=== PATIENT | male | born 1980 | race Caucasian/White ===

== ENCOUNTER 2020-07-21 16:04 | Emergency (ER) | payer OTHER, SELFPAY ==
--- NOTE | ~2020-07-21 | XR_ITS ---
EXAMINATION: XR chest 2V 07/21/2020 16:19 INDICATION: Rib pain after fall PROCEDURE: 2 view chest COMPARISON: Comparison to multiple prior studies sequentially, with oldest reviewed study dated 12/19. FINDINGS: The lungs are clear. The cardiomediastinal silhouette is within normal limits. There are no pleural effusions. There is no pneumothorax suspected. IMPRESSION: 1: NO ACUTE CARDIOPULMONARY DISEASE. Reviewed, dictated and finalized at location B. 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
[2020-07-21 16:06] VITALS: BP 133/89; PULSE 83; RESP 20; TEMP 36.4; O2SAT 100
--- NOTE | 2020-07-21 20:26 | ED.GENADULT ---
HPI - General Adult General Chief complaint: Fall Stated complaint: fall- rib pain Time Seen by Provider: 07/21/20 16:10 Source: patient Mode of arrival: ambulatory Limitations: no limitations History of Present Illness HPI narrative: Patient presents with chief complaint of right posterior rib pain after falling down the steps at work on July 11. Patient states that today while he was at work he coughed and he felt a popping sensation to his ribs with worsening pain. Patient denies shortness of breath, nausea, vomiting, diarrhea, fever, chills, shortness of breath. Related Data Allergies Allergy/AdvReac Type Severity Reaction Status Date / Time No Known Allergies Allergy Verified 07/21/20 16:08 Review of Systems Review of Systems: Narrative: CONSTITUTIONAL: Denies fever, chills, or sweats. EYES: Denies visual changes, redness, or discharge. ENT: Denies rhinorrhea, congestion, sore throat, or otalgia. CARDIOVASCULAR: Denies chest pain, palpitations, or edema. RESPIRATORY: Denies cough or dyspnea. GASTROINTESTINAL: Denies abdominal pain, nausea, vomiting, or diarrhea. GENITOURINARY: Denies dysuria or hematuria. SKIN: Denies rash or itching. MUSCULOSKELETAL: Reports rib pain denies back pain, joint pain, or myalgia. NEUROLOGIC: Denies headache, numbness, dizziness, or weakness. PSYCHIATRIC: Denies anxiety or depression. PMFSH Social History Social History Gender identity (if verbalized by the patient): Male Exam Narrative: Exam Narrative: GENERAL: Well-appearing, well-nourished, and in no acute distress. HEAD: Normocephalic, atraumatic. EYES: PERRLA and EOMI. NECK: Supple. No adenopathy or masses. CHEST: Extremely faint bruise to the posterior aspect of right rib. clear to auscultation. No respiratory distress. No wheezes rales or rhonchi. No flail chesting. No tachypnea HEART: Regular rate and rhythm. No murmur heard. Normal peripheral pulses. EXTREMITIES: Normal range of motion. No edema. SKIN: Warm, dry, no rash. NEURO: No focal deficits. Alert and oriented x3. PSYCH: Normal mood and affect. Course Vital Signs Vital signs: Vital Signs Temperature 97.5 F L 07/21/20 16:06 Pulse Rate 83 07/21/20 16:06 Respiratory Rate 20 07/21/20 16:06 Blood Pressure 133/89 07/21/20 16:06 Pulse Oximetry 100 07/21/20 16:06 Temperature 97.5 F L 07/21/20 16:06 Pulse Rate 83 07/21/20 16:06 Respiratory Rate 20 07/21/20 16:06 Blood Pressure 133/89 07/21/20 16:06 Pulse Oximetry 100 07/21/20 16:06 Medical Decision Making MDM Narrative Medical decision making narrative: No fracture patient is asking about work restrictions to be off work due to cough worsening pain. Patient has been functioning this job since the fall July 11. No signs of need for patient to be off work prolonged or have extensive restrictions at this time. Differential Diagnosis Differential Diagnosis: PE, pneumonia, rib fracture, rib contusion Vital Signs Vital Signs: Vital Signs Temperature 97.5 F L 07/21/20 16:06 Pulse Rate 83 07/21/20 16:06 Respiratory Rate 20 07/21/20 16:06 Blood Pressure 133/89 07/21/20 16:06 Pulse Oximetry 100 07/21/20 16:06 Temperature 97.5 F L 07/21/20 16:06 Pulse Rate 83 07/21/20 16:06 Respiratory Rate 20 07/21/20 16:06 Blood Pressure 133/89 07/21/20 16:06 Pulse Oximetry 100 07/21/20 16:06 Imaging Data Radiologist's impression: ITS Impressions Chest X-Ray 07/21/20 16:22 IMPRESSION: 1: NO ACUTE CARDIOPULMONARY DISEASE. Discharge Plan Discharge Clinical Impression: Rib pain on right side Patient Disposition: Home, Self-Care Condition: Stable Instructions: Antibiotic Form, Rib Contusion (ED) Additional Instructions: Take naproxen and cyclobenzaprine as directed. Do not take cyclobenzaprine if you be driving operate heavy machinery as it can cause drowsiness. Do not take any other NSAIDs with naproxen. You
== END 2020-07-21 18:02 | disposition home or self-care (01) ==
PROVIDERS: Emergency Provider Emergency Medicine
DX: R07.81 Pleurodynia (principal); W10.9XXA Fall (on) (from) unspecified stairs and steps, initial encounter
CPT/HCPCS: 71046; 99283

== ENCOUNTER 2022-06-27 10:21 | Emergency (ER) | payer OTHER, SELFPAY ==
--- NOTE | ~2022-06-27 | XR_ITS ---
XR chest 2V DATE: 06/27/2022 10:45 INDICATION: Chest tightness, sweats, fatigue TECHNIQUE: PA and lateral views COMPARISON: July 21, 2020 2 view chest FINDINGS: Normal heart size. No hilar or mediastinal enlargement. Minimal infiltrate or atelectasis i s suggested in the lower lung zones. The lungs otherwise appear clear. No pleural effusion or pulmona ry vascular congestion or pneumothorax is detected. IMPRESSION: Minimal infiltrate or atelectasis in the lower lung since Reviewed, dictated and finalized at location B. 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
--- NOTE | 2022-06-27 10:23 | ECG_ITS ---
Measurements Intervals [place] Rate: 75 P: 22 SD: 164 QRS: -12 QRSD: 106 T: 24 QT: 350 QTc: 392 Interpretive Statements SINUS RHYTHM DELAYED PRECORDIAL R/S TRANSITION BORDERLINE ECG NO PREVIOUS ECG AVAILABLE FOR COMPARISON Electronically Signed On 06-27-2022 10:31:01 PANELBOARD OPERATOR by Woody Lobato D.O.
[2022-06-27 10:27] VITALS: BP 173/116; PULSE 86; RESP 18; TEMP 36.8; O2SAT 95
[2022-06-27 10:47] LABS: Basophils Percent Auto 0.4 % (0.2-1.2); Eosinophils Absolute Auto 0.1 K/mm3 (0-0.3); Eosinophils Percent Auto 1.7 % (0-4.4); Hemoglobin 14.9 g/dL (14.0-18.0); Immature Granulocyte Absolute 0.02 K/mm3 (0.00-0.031); Immature Granulocyte Percent A 0.3 % (0-0.5); Lymphocytes Absolute Auto 1.61 K/mm3 (0.9-3.2); Lymphocytes Percent Auto 23.1 % (18.3-44.2); Mean Corpuscular HGB Conc 35.5 g/dl (32-36); Mean Corpuscular Hemoglobin 30.5 pg (26-34); Mean Corpuscular Volume 86.1 fl (80-100); Mean Platelet Volume 9.6 fl (7.4-10.4); Monocytes Absolute Auto 0.4 K/mm3 (0.1-0.6); Neutrophils Absolute Auto 4.8 K/mm3 (1.3-6.7); Neutrophils Percent Auto 68.5 % (45.5-73.1); Platelet Count Result 347 k/mm3 (150-375); Red Blood Count 4.88 M/mm3 (4.6-6.20); Red Cell Distribution Width 11.7 % (11.5-14.5)
[2022-06-27 10:55] VITALS: BP 156/102; PULSE 75; RESP 12; O2SAT 98
[2022-06-27 10:59] LABS: Partial Thromboplastin Time 27.8 SECONDS (22.3-36.8); Prothrombin Time 12.7 Seconds (11.1-14.7)
[2022-06-27 11:05] VITALS: BP 133/98; PULSE 69; RESP 12; O2SAT 94
[2022-06-27] MEDS: ASPIRIN 81 MG CHEWABLE TABLET 324 MG PO (11:06)
[2022-06-27 11:17] LABS: Alanine Aminotransferase 28 U/L (6-50); Albumin Level 4.7 g/dL (3.5-5.1); Alkaline Phosphatase 40 U/L (38-126); Anion Gap 4 mmol/L (8-16); Aspartate Amino Transferase 31 U/L (17-59); Bilirubin,Total 0.7 mg/dL (0.2-1.3); Blood Urea Nitrogen 19 mg/dL (9-20); Carbon Dioxide 27 mmol/L (22-30); Chloride 104 mmol/L (98-107); Estimated CRCL calculation 102 ml/min; Estimated Glomerular Filt Rate > 60; Glucose 112 mg/dL (65-110); Lipase 85 U/L (23-300); Potassium 4.1 mmol/L (3.4-5.0); Sodium 135 mmol/L (137-145)
[2022-06-27 11:29] LABS: Troponin I < 0.012 ng/mL (0.000-0.034)
--- NOTE | 2022-06-27 11:44 | ED.CHESTPAIN ---
HPI - Chest Pain General Chief Complaint: Chest Pain Stated Complaint: chest pain Time Seen by Provider: 06/27/22 11:32 History of Present Illness HPI narrative: Pt presents with a variety of complaints. Pt has had intermittent chest pressure and difficulty taking a deep breath for a year now. Pt says he frequently gets hot flashes and sweats through clothes at work and then gets cold. Pt says his father is diabetic and has CHF and has had an [place] and he wants to get checked out to make sure he is ok. Pt has had elevated BP when he has checked in past. Pt has no PCP but is willing to follow up and establish with one. Pt says that today while at work he had all these symptoms and also had numbness in his fingertips and around his lips so he came in to get checked out. Related Data Allergies Allergy/AdvReac Type Severity Reaction Status Date / Time No Known Allergies Allergy Verified 06/27/22 10:57 Review of Systems Review of Systems: All systems reviewed & are unremarkable except as noted in HPI and below PMFSH Social History Social History Gender identity (if verbalized by the patient): Male Exam Const: General: healthy appearing and no acute distress Nutritional Appearance: well nourished Orientation/consciousness: patient oriented x3 Limitations: no limitations Eyes: Conjunctivae: conjunctivae normal Pupils: Equal, round and reactive pupils present EOM: EOMs intact bilaterally Neck: Neck: normal visual inspection, no lymphadenopathy and no meningeal signs Chest: Chest palpation & inspection: normal inspection of the chest Resp: Effort & Inspection: normal respiratory effort Auscultation: clear to auscultation bilaterally Cardio: Rate: regular rate Rhythm: regular rhythm GI: Auscultation: normal bowel sounds Skin: General skin exam: normal color Rashes: no rashes Neuro: General: patient oriented x3 and moves all extremities Cranial nerves: Yes Nystagmus not present Speech: normal speech Extrem: General: normal to inspection and no clubbing, cyanosis or edema Psych: Mental Status: mental status grossly normal Affect: normal affect Attitude: cooperative Course Vital Signs Vital signs: Vital Signs Temperature 98.3 F 06/27/22 10:27 Pulse Rate 86 06/27/22 10:27 Respiratory Rate 18 06/27/22 10:27 Blood Pressure 173/116 H 06/27/22 10:27 Pulse Oximetry 95 01/16/23 10:27 Oxygen Delivery Room Air 06/27/22 10:27 Temperature 98.3 F 06/27/22 10:27 Pulse Rate 69 06/27/22 13:15 Respiratory Rate 17 06/27/22 13:15 Blood Pressure 139/85 06/27/22 13:15 Pulse Oximetry 97 06/27/22 13:15 Oxygen Delivery Room Air 06/27/22 10:27 MDM - Chest Pain MDM Narrative Medical decision making narrative: pt is hypertensive, pt also anxious about symptoms, differential for sweats is extensive and should be worked up as outpatient if routine labs here are normal. will check cbc, cmp ekg cxr and trop. labs essentially normal cxr atelectasis ekg nl, will discharge home on hctz 25mg daily. will give follow up PCP. Pt agrees to follow up for further evaluation. Lab Data Attestation: I reviewed the patient's lab results. 06/27/22 10:36 06/27/22 10:59 Labs: Lab Results 06/27/22 06/27/22 06/27/22 Range/Units 10:36 10:36 10:59 WBC 7.0 (4.5-10.0) K/mm3 RBC 4.88 (4.6-6.20) M/mm3 Hgb 14.9 (14.0-18.0) g/dL Hct 42.0 (42.0-52.0) % MCV 86.1 (80-100) fl MCH 30.5 (26-34) pg MCHC 35.5 (32-36) g/dl RDW 11.7 (11.5-14.5) % Plt Count 347 (150-375) k/mm3 MPV 9.6 (7.4-10.4) fl Immature Gran % (Auto) 0.3 (0-0.5) % Neut % (Auto) 68.5 (45.5-73.1) % Lymph % (Auto) 23.1 (18.3-44.2) % [place] % (Auto) 6.0 (2.6-8.5) % Eos % (Auto) 1.7 (0-4.4) % Baso % (Auto) 0.4 (0.2-1.2) % Lymph # (Auto) 1.61 (0.9-3.2) K/mm3 [place] # (Auto) 0.4 (0.1-0.6) K/mm3 Eos # (Auto) 0.1 (0-0.3) K/
[2022-06-27 13:15] VITALS: BP 139/85; PULSE 69; RESP 17; O2SAT 97
== END 2022-06-27 13:18 | disposition home or self-care (01) ==
PROVIDERS: Emergency Provider Emergency Medicine; PCP Physician Assistant
DX: R07.89 Other chest pain (principal); I10 Essential (primary) hypertension; F41.9 Anxiety disorder, unspecified; R94.31 Abnormal electrocardiogram [ECG] [EKG]
CPT/HCPCS: 36415; 71046; 80053; 83690; 84484; 85025; 85610; 85730; 93005; 99284; A9270

== ENCOUNTER 2023-06-04 09:06 | Emergency (ER) | payer OTHER, SELFPAY ==
--- NOTE | ~2023-06-04 | XR_ITS ---
XR chest 1V portable DATE: 06/04/2023 09:30 INDICATION: Cough, upper respiratory infection TECHNIQUE: Portable upright AP chest on 05/31/2023 at 0928 hours COMPARISON: 06/27/2022 PA and lateral chest FINDINGS: Mild discoid atelectasis, lateral left lower lung. Mild infiltrate or atelectasis, left ret rocardiac area, left lower lobe. Minimal infiltrate or atelectasis in the right lower lung. The lungs otherwise appear clear. Normal heart size. No hilar or mediastinal enlargement. No pleural effusion or pulmonary vascular con gestion or pneumothorax. IMPRESSION: Mild infiltrate or atelectasis at the lung bases Reviewed, dictated and finalized at location A. R CALLER
[2023-06-04 09:08] VITALS: BP 153/96; PULSE 97; RESP 18; TEMP 36.5; O2SAT 95
--- NOTE | 2023-06-04 09:12 | ED.URI ---
HPI - URI/Sore Throat General Chief Complaint: Upper Respiratory Infection Stated Complaint: Upper resp x2 weeks Time Seen by Provider: 06/04/23 09:10 Source: patient Mode of arrival: ambulatory Limitations: no limitations History of Present Illness HPI Narrative: Patient is a pleasant 42-year-old male without any significant past medical history presents emergency department today ambulatory with a steady gait for evaluation of 14 days of cough, congestion, chills, decreased appetite, generalized fatigue. Patient states he has been taking [id number] cold and flu, Mucinex without any relief. He has been coughing and having nasal drainage that is thick and green and yellow. also reports possible fever. Denies any known exposure to anybody with similar illness. denies sore throat, dizziness, headache. He states that he starts to get short of breath when coughing. He denies chest pain. Denies any tobacco use. Denies any history of asthma or underlying lung disease. Denies any recent prolonged periods of travel, history of PE or DVT, or any other symptoms. Related Data Allergies Allergy/AdvReac Type Severity Reaction Status Date / Time No Known Allergies Allergy Verified 06/04/23 09:11 Review of Systems Review of Systems: CONSTITUTIONAL: +fever, chills, sweats EYES: Denies visual changes, redness, or discharge. ENT: Denies rhinorrhea, congestion, sore throat, or otalgia. CARDIOVASCULAR: Denies chest pain, palpitations, or edema. RESPIRATORY: Denies cough or dyspnea. GASTROINTESTINAL: Denies abdominal pain, nausea, vomiting, or diarrhea. GENITOURINARY: Denies dysuria or hematuria. SKIN: Denies rash or itching. MUSCULOSKELETAL: Denies back pain, joint pain, or myalgia. NEUROLOGIC: Denies headache, numbness, or weakness. PSYCHIATRIC: Denies anxiety or depression. All systems reviewed & are unremarkable except as noted in HPI and below PMFSH Social History Social History Gender identity (if verbalized by the patient): Male Exam Narrative: GENERAL: Well-appearing, well-nourished, resting on exam stretcher, speaking in full sentences without difficulty, and in no acute distress. does appear fatigued and not feeling well. HEAD: Normocephalic, atraumatic. EYES: PERRLA and EOMI. ENT: nasal congestion. thick green/yellow sputum and nasal drainage. post nasal drip noted. bilateral ear with fluid level noted. swallowing with ease. no posterior oropharyngeal erythema or tonsillar swelling or tonsillar abscess. NECK: Supple. CHEST: left lower lobe with rhonchi and expiratory wheeze. right lung [place] with more diminished and faint expiratory wheeze. no rales. HEART: Regular rate and rhythm. No murmur heard. Normal peripheral pulses. ABDOMEN: Soft, nontender, nondistended, normal active bowel sounds. EXTREMITIES: Normal range of motion. No edema. SKIN: Warm, dry, no rash. NEURO: No focal deficits. Alert and oriented x3. CN II-XII grossly intact PSYCH: Normal mood and affect. Course Vital Signs Vital signs: Vital Signs Temperature 97.7 F 06/04/23 09:08 Pulse Rate 97 06/04/23 09:08 Respiratory Rate 18 06/04/23 09:08 Blood Pressure 153/96 H 06/04/23 09:08 Pulse Oximetry 95 06/04/23 09:08 Oxygen Delivery Room Air 06/04/23 09:08 Temperature 97.7 F 06/04/23 09:08 Pulse Rate 98 06/04/23 09:57 Respiratory Rate 18 06/04/23 09:08 Blood Pressure 153/96 H 06/04/23 09:08 Pulse Oximetry 95 06/04/23 10:40 Oxygen Delivery Room Air 06/04/23 10:40 MDM - URI/Sore Throat MDM Narrative Medical decision making narrative: Patient presents for respiratory symptoms 2 weeks. On examination he does have rhonchi expiratory wheezing in the lower bases of the lungs. Will obtain chest x-ray as well as viral panel. He is not toxic however or hypoxic. Will also administer DuoNeb and re-evaluate. CXR notes infiltrate vs atelectasis at lung b
[2023-06-04 09:57] VITALS: PULSE 98
[2023-06-04] MEDS: ALBUTEROL SULFATE NEB 2.5 MG/3 ML INH INHALATION (09:57)
[2023-06-04] MEDS: IPRATROPIUM BR 0.02% INH SOLN 0.5 MG/2.5 ML VIAL 1 MG INHALATION (09:57)
[2023-06-04] MEDS: predniSONE 20 MG TABLET 60 MG PO (10:36)
[2023-06-04] MEDS: AZITHROMYCIN 250 MG TABLET 500 MG PO (10:36)
[2023-06-04] MEDS: cefTRIAXone 1 GM VIAL IM (10:36)
[2023-06-04] MEDS: LIDOCAINE HCL 1% LOCAL INJ 10 ML VIAL (10:39)
[2023-06-04 10:40] VITALS: O2SAT 95
[2023-06-04 11:12] LABS: Influenza A QL RT-PCR Negative (Negative); Influenza B QL RT-PCR Negative (Negative); RSV RNA, RT-PCR Negative (Negative); SARS-CoV-2 RNA PCR Negative (Negative)
== END 2023-06-04 11:06 | disposition home or self-care (01) ==
PROVIDERS: Emergency Provider Nurse Practitioner; PCP Physician Assistant
DX: R03.0 Elevated blood-pressure reading, without diagnosis of hypertension (principal); J18.9 Pneumonia, unspecified organism; R05.1 Acute cough; Z20.822 Contact with and (suspected) exposure to COVID-19
CPT/HCPCS: 71045; 87637; 94640; 96372; 99283; A9270; J0696; J7512

== ENCOUNTER 2023-11-21 09:21 | Emergency (ER) | payer OTHER, SELFPAY ==
[2023-11-21 09:25] VITALS: BP 162/101; PULSE 93; RESP 16; TEMP 36.5; O2SAT 97
--- NOTE | 2023-11-21 09:51 | ED.GENADULT ---
HPI - General Adult General Chief complaint: Unspecified Stated complaint: work note Time Seen by Provider: 11/21/23 09:29 Source: patient Mode of arrival: ambulatory Limitations: no limitations History of Present Illness HPI narrative: This is a 42-year-old male that presents to the emergency department after a right ankle injury 3 days ago. Reports he rolled his right ankle carrying drywall up steps. It was sore, so he did not go to work yesterday. His work wants him to have a work note to return to work today. Reports mild swelling to the area. Denies decreased range of motion or numbness. Related Data Allergies Allergy/AdvReac Type Severity Reaction Status Date / Time No Known Allergies Allergy Verified 11/21/23 09:28 Review of Systems Review of Systems: CONSTITUTIONAL: Denies fever MUSCULOSKELETAL: Reports joint pain, and myalgia. NEUROLOGIC: Denies numbness, or weakness. All systems reviewed & are unremarkable except as noted in HPI and below PMFSH Past Medical History Medical History (Updated 11/21/23 @ 09:59 by Racheal Reese PA-C) No active medical problems Social History Social History (Updated 11/21/23 @ 10:00 by Racheal Reese PA-C) Substance use: former Gender identity (if verbalized by the patient): Male Exam Narrative: GENERAL: Well-appearing, well-nourished, and in no acute distress. HEAD: Normocephalic, atraumatic. EYES: EOMI. EXTREMITIES: Normal range of motion. No edema or obvious deformity. Normal DP pulse. Normal sensation SKIN: Warm, dry, no rash. NEURO: No focal deficits. Alert and oriented x3. PSYCH: Normal mood and affect Course Course Emergency Course: Patient in agreement with plan of care Vital Signs Vital signs: Vital Signs Temperature 97.7 F 11/21/23 09:25 Pulse Rate 93 11/21/23 09:25 Respiratory Rate 16 11/21/23 09:25 Blood Pressure 162/101 H 11/21/23 09:25 Pulse Oximetry 97 11/21/23 09:25 Oxygen Delivery Room Air 11/21/23 09:25 Temperature 97.7 F 11/21/23 09:25 Pulse Rate 93 11/21/23 09:25 Respiratory Rate 16 11/21/23 09:25 Blood Pressure 162/101 H 11/21/23 09:25 Pulse Oximetry 97 11/21/23 09:25 Oxygen Delivery Room Air 11/21/23 09:25 Medical Decision Making MDM Narrative Medical decision making narrative: Patient presents to the emergency department after an ankle injury 3 days ago. Patient is neurovascularly intact. Does not wish to have any imaging of his ankle at this time. He was instructed on further care of likely ankle sprain. He is to follow up with primary provider. Encouraged to rest, but patient wishes to go back to work, states he is able to ambulate without pain. He was given warnings to return to the ER Differential Diagnosis Differential Diagnosis: ankle sprain, ankle fracture Vital Signs Vital Signs: Vital Signs Temperature 97.7 F 11/21/23 09:25 Pulse Rate 93 11/21/23 09:25 Respiratory Rate 16 11/21/23 09:25 Blood Pressure 162/101 H 11/21/23 09:25 Pulse Oximetry 97 11/21/23 09:25 Oxygen Delivery Room Air 11/21/23 09:25 Temperature 97.7 F 11/21/23 09:25 Pulse Rate 93 11/21/23 09:25 Respiratory Rate 16 11/21/23 09:25 Blood Pressure 162/101 H 11/21/23 09:25 Pulse Oximetry 97 11/21/23 09:25 Oxygen Delivery Room Air 11/21/23 09:25 Critical Care Time Critical Care Time Critical Care Time: No Discharge Plan Discharge Clinical Impression: Ankle pain, right Qualifiers: Chronicity: acute Qualified Code(s): M25.571 - Pain in right ankle and joints of right foot Patient Disposition: Home, Self-Care Condition: Stable Instructions: Ankle Sprain (ED) Additional Instructions: Return to the ER if you experience fever, redness and swelling of your extremity, numbness or any other symptoms that are concerning to you Ice and elevate extremity. Tylenol or ibuprofen as needed for pain Follow up with your doctor karthikeyan
== END 2023-11-21 10:02 | disposition home or self-care (01) ==
PROVIDERS: Emergency Provider Physician Assistant; PCP Physician Assistant
DX: S99.911A Unspecified injury of right ankle, initial encounter (principal); X50.9XXA Other and unspecified overexertion or strenuous movements or postures, initial encounter
CPT/HCPCS: 99282

== ENCOUNTER 2024-05-07 15:51 | Emergency (ER) | payer OTHER, SELFPAY ==
--- NOTE | ~2024-05-07 | XR_ITS ---
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 RESULT: Lines, tubes, and devices: None. Lungs and pleura: Clear. Cardiomediastinal silhouette: Stable. Other: No acute osseous or upper abdominal finding. IMPRESSION: No acute cardiopulmonary process. Reviewed, dictated and finalized at location K. RETE MIXING TRUCK DRIVER
[2024-05-07 15:52] VITALS: PULSE 90; RESP 20; TEMP 36.9; O2SAT 100
--- NOTE | 2024-05-07 17:37 | ECG_ITS ---
Test Date: 2024-05-07 18:53:18 Measurements Intervals [place] Rate: 85 P: 35 NE: 161 QRS: -14 QRSD: 112 T: 38 QT: 373 QTc: 445 Interpretive Statements SINUS RHYTHM INTRAVENTRICULAR CONDUCTION DELAY DELAYED PRECORDIAL R/S TRANSITION BASELINE ARTIFACT- I, II, AVR, AVL, AVF BORDERLINE ECG No previous ECG available for comparison Electronically Signed On 05-07-2024 19:04:43 CARTOGRAPHIC DESIGNER by Woody Lobato D.O.
--- NOTE | 2024-05-07 17:39 | ED.GENADULT ---
HPI - General Adult General Chief complaint: Unspecified <Sherlyn Wisdom APRN - Last Filed: 05/07/24 17:42> Stated complaint: pna? <Sherlyn Wisdom APRN - Last Filed: 05/07/24 17:42> Time Seen by Provider: 05/07/24 17:25 <Sherlyn Wisdom APRN - Last Filed: 05/07/24 17:42> Focused HPI: Patient is a 43-year-old male who presents to the ER with concerns that he has pneumonia. He endorses a 10 day history of upper respiratory infection symptoms. He reports his symptoms started with a sore throat that lead to congestion. Patient reports today he has a fever, chills, emesis, nausea, sore throat and productive cough. He reports had the exact same symptoms last year at this time and they diagnosed a with pneumonia. He also endorses shortness of breath but denies chest pain. GENERAL: Well-appearing, well-nourished, and in no acute distress. HEAD: Normocephalic, atraumatic. CHEST: Coarse to auscultation with expiratory wheezes. ?Mild respiratory distress. HEART: Regular rate and rhythm.? NEURO: ?Alert and oriented x3. Patient screened in triage and initial orders placed.? ?Additional care and disposition to be based upon?diagnostic testing and treatment. <Sherlyn Wisdom APRN - Last Filed: 05/07/24 17:42> History of Present Illness HPI narrative: Agree with HPI. Reports he started having sinus congestion and then developed productive cough and now he is vomiting. No longer has sinus congestion and cough is less. He is concerned he has pneumonia. Patient has been having sweats and dizziness intermittently. This causes them to be nauseous. <Krish Leon MD - Last Filed: 05/07/24 21:42> Related Data Allergies/adverse reactions: Allergies Allergy/AdvReac Type Severity Reaction Status Date / Time No Known Allergies Allergy Verified 11/21/23 09:28 <Sherlyn Wisdom APRN - Last Filed: 05/07/24 17:42> Review of Systems Review of Systems: All systems reviewed & are unremarkable except as noted in HPI and below <Krish Leon MD - Last Filed: 05/07/24 21:42> Constitutional: Constitutional: Reports no additional constitutional complaints <Krish Leon MD - Last Filed: 05/07/24 21:42> ENT: Reports system reviewed and no additional complaints, except as documented <Krish Leon MD - Last Filed: 05/07/24 21:42> Cardiovascular: Cardiovascular: Reports no additional cardiovascular complaints <Krish Leon MD - Last Filed: 05/07/24 21:42> Respiratory: Respiratory: Reports no additional respiratory complaints <Krish Leon MD - Last Filed: 05/07/24 21:42> Gastrointestinal: Gastrointestinal: Reports no additional gastrointestinal complaints <Krish Leon MD - Last Filed: 05/07/24 21:42> PMFSH Past Medical History Medical History: Medical History (Updated 05/07/24 @ 21:15 by Krish Leon MD) No active medical problems <Sherlyn Wisdom APRN - Last Filed: 05/07/24 17:42> Social History Social History: Social History (Updated 11/21/23 @ 10:00 by Racheal Reese PA-C) Substance use: former Gender identity (if verbalized by the patient): Male <Sherlyn Wisdom APRN - Last Filed: 05/07/24 17:42> Exam Narrative: GENERAL: Well-appearing, well-nourished, and in no acute distress. HEAD: Normocephalic, atraumatic. ENT: Mucous membranes moist. cerumen impaction right ear canal. After removal tympanic membrane was visualized and normal in appearance. Normal left TM and ear canal. NECK: Supple. CHEST: Clear to auscultation. No respiratory distress. HEART: Regular rate and rhythm. Normal peripheral pulses. EXTREMITIES: Normal range of motion. No edema. SKIN: Warm, dry, no rash. NEURO: Alert and oriented x3. PSYCH: Normal mood and affect. <Krish Leon MD - Last Filed: 05/07/24 21:42> Course Course Emergency Course: Patient resting comfortably. Informed of results. No evidence of pneumonia. COVID/flu/ RSV negative. Appropriate for discharge home with supportive care. Patient is very upset that he is not being given antibiotic despite my evaluation coming to the determination of this is a viral illness and antibiotics are appropriate. Discussed his sweats and dizziness are felt to be vertigo related to cerumen impaction which is not been cleared. <Krish Leon MD - Last Filed: 05/07/24 21:42> Vital Signs Vital signs: Vital Signs Temperature 98.4 F 05/07/24 15:52 Pulse Rate 90 05/07/24 15:52 Respiratory Rate 20 05/07/24 15:52 Pulse Oximetry 100 05/07/24 15:52 Temperature 97.9 F 05/07/24 18:33 Pulse Rate 93 05/07/24 18:33 Respiratory Rate 20 05/07/24 18:46 Blood Pressure 182/115 H 05/07/24 18:33 Pulse Oximetry 96 05/07/24 18:33 <Sherlyn Wisdom, CRIME SCENE EVIDENCE TECHNICIAN - Last Filed: 05/07/24 17:42> Vital Signs Temperature 98.4 F 05/07/24 15:52 Pulse Rate 90 05/07/24 15:52 Respiratory Rate 20 05/07/24 15:52 Pulse Oximetry 100 05/07/24 15:52 Temperature 97.9 F 05/07/24 18:33 Pulse Rate 93 05/07/24 18:33 Respiratory Rate 20 05/07/24 18:46 Blood Pressure 182/115 H 05/07/24 18:33 Pulse Oximetry 96 05/07/24 18:33 <Krish Leon MD - Last Filed: 05/07/24 21:42> Medical Decision Making Vital Signs Vital Signs: Vital Signs Temperature 98.4 F 05/07/24 15:52 Pulse Rate 90 05/07/24 15:52 Respiratory Rate 20 05/07/24 15:52 Pulse Oximetry 100 05/07/24 15:52 Temperature 97.9 F 05/07/24 18:33 Pulse Rate 93 05/07/24 18:33 Respiratory Rate 20 05/07/24 18:46 Blood Pressure 182/115 H 05/07/24 18:33 Pulse Oximetry 96 05/07/24 18:33 <Sherlyn Wisdom, CRIME SCENE EVIDENCE TECHNICIAN - Last Filed: 05/07/24 17:42> Vital Signs Temperature 98.4 F 05/07/24 15:52 Pulse Rate 90 05/07/24 15:52 Respiratory Rate 20 05/07/24 15:52 Pulse Oximetry 100 05/07/24 15:52 Temperature 97.9 F 05/07/24 18:33 Pulse Rate 93 05/07/24 18:33 Respiratory Rate 20 05/07/24 18:46 Blood Pressure 182/115 H 05/07/24 18:33 Pulse Oximetry 96 05/07/24 18:33 <Krish Leon MD - Last Filed: 05/07/24 21:42> Lab Data Result diagrams: 05/07/24 19:22 05/07/24 19:22 <Sherlyn Wisdom APRN - Last Filed: 05/07/24 17:42> Labs: Lab Results 05/07/24 Range/Units 19:22 WBC 7.8 (4.5-10.0) K/mm3 RBC 5.20 (4.6-6.20) M/mm3 Hgb 16.2 (14.0-18.0) g/dL Hct 44.1 (42.0-52.0) % MCV 84.8 (80-100) fl MCH 31.2 (26-34) pg MCHC 36.7 H (32-36) g/dl RDW 11.7 (11.5-14.5) % Plt Count 220 (150-375) k/mm3 MPV 9.9 (7.4-10.4) fl Immature Gran % (Auto) 0.3 (0-0.5) % Neut % (Auto) 79.5 H (45.5-73.1) % Lymph % (Auto) 15.6 L (18.3-44.2) % [place] % (Auto) 4.2 (2.6-8.5) % Eos % (Auto) 0.3 (0-4.4) % Baso % (Auto) 0.1 L (0.2-1.2) % Lymph # (Auto) 1.21 (0.9-3.2) K/mm3 [place] # (Auto) 0.3 (0.1-0.6) K/mm3 Eos # (Auto) 0.0 (0-0.3) K/mm3 Baso # (Auto) 0.0 (0.0-0.1) K/mm3 Abs Immat Gran (auto) 0.02 (0.00-0.031) K/mm3 Absolute Neuts (auto) 6.2 (1.3-6.7) K/mm3 Absolute Nucleated RBC 0.000 (0.0-0.012) K/mm3 Nucleated RBC % 0.0 (0.0-0.2) % PT 13.6 (11.1-14.7) Seconds INR 1.0 APTT 25.9 (22.3-36.8) Seconds Sodium 139 (137-145) mmol/L Potassium 3.7 (3.4-5.0) mmol/L Chloride 108 H (98-107) mmol/L Carbon Dioxide 21 L (22-30) mmol/L Anion Gap 10 (4-12) mmol/L BUN 16 (9-20) mg/dL Creatinine 0.80 (0.7-1.3) mg/dL Estim Creat Clear Calc 125 ml/min Estimated GFR > 60 (59 - ) Glucose 100 (65-110) mg/dL Lactic Acid 1.2 (0.7-2.0) mmol/L Calcium 9.1 (8.4-10.2) mg/dL Magnesium 2.0 (1.6-2.3) mg/dL Total Bilirubin 0.7 (0.2-1.3) mg/dL AST 32 (17-59) U/L ALT 29 (6-50) U/L Alkaline Phosphatase 66 (38-126) U/L Troponin I < 0.012 (0.000-0.034) ng/mL Total Protein 9.0 H (6.3-8.2) g/dL Albumin 4.8 (3.5-5.1) g/dL Influenza A (RT-PCR) Negative (Negative) Influenza B (RT-PCR) Negative (Negative) RSV (RT-PCR) Negative (Negative) SARS-CoV-2 RNA (RT-PCR) Negative (Negative) <Sherlyn Wisdom, CRIME SCENE EVIDENCE TECHNICIAN - Last Filed: 05/07/24 17:42> Lab Results 05/07/24 Range/Units 19:22 WBC 7.8 (4.5-10.0) K/mm3 RBC 5.20 (4.6-6.20) M/mm3 Hgb 16.2 (14.0-18.0) g/dL Hct 44.1 (42.0-52.0) % MCV 84.8 (80-100) fl MCH 31.2 (26-34) pg MCHC 36.7 H (32-36) g/dl RDW 11.7 (11.5-14.5) % Plt Count 220 (150-375) k/mm3 MPV 9.9 (7.4-10.4) fl Immature Gran % (Auto) 0.3 (0-0.5) % Neut % (Auto) 79.5 H (45.5-73.1) % Lymph % (Auto) 15.6 L (18.3-44.2) % [place] % (Auto) 4.2 (2.6-8.5) % Eos % (Auto) 0.3 (0-4.4) % Baso % (Auto) 0.1 L (0.2-1.2) % Lymph # (Auto) 1.21 (0.9-3.2) K/mm3 [place] # (Auto) 0.3 (0.1-0.6) K/mm3 Eos # (Auto) 0.0 (0-0.3) K/mm3 Baso # (Auto) 0.0 (0.0-0.1) K/mm3 Abs Immat Gran (auto) 0.02 (0.00-0.031) K/mm3 Absolute Neuts (auto) 6.2 (1.3-6.7) K/mm3 Absolute Nucleated RBC 0.000 (0.0-0.012) K/mm3 Nucleated RBC % 0.0 (0.0-0.2) % PT 13.6 (11.1-14.7) Seconds INR 1.0 APTT 25.9 (22.3-36.8) Seconds Sodium 139 (137-145) mmol/L Potassium 3.7 (3.4-5.0) mmol/L Chloride 108 H (98-107) mmol/L Carbon Dioxide 21 L (22-30) mmol/L Anion Gap 10 (4-12) mmol/L BUN 16 (9-20) mg/dL Creatinine 0.80 (0.7-1.3) mg/dL Estim Creat Clear Calc 125 ml/min Estimated GFR > 60 (59 - ) Glucose 100 (65-110) mg/dL Lactic Acid 1.2 (0.7-2.0) mmol/L Calcium 9.1 (8.4-10.2) mg/dL Magnesium 2.0 (1.6-2.3) mg/dL Total Bilirubin 0.7 (0.2-1.3) mg/dL AST 32 (17-59) U/L ALT 29 (6-50) U/L Alkaline Phosphatase 66 (38-126) U/L Troponin I < 0.012 (0.000-0.034) ng/mL Total Protein 9.0 H (6.3-8.2) g/dL Albumin 4.8 (3.5-5.1) g/dL Influenza A (RT-PCR) Negative (Negative) Influenza B (RT-PCR) Negative (Negative) RSV (RT-PCR) Negative (Negative) SARS-CoV-2 RNA (RT-PCR) Negative (Negative) <Krish Leon MD - Last Filed: 05/07/24 21:42> Imaging Data Radiologist's impression: ITS Impressions Chest X-Ray 05/07/24 20:19 IMPRESSION: No acute cardiopulmonary process. <Krish Leon MD - Last Filed: 05/07/24 21:42> ECG Data EKG #1: ECG completion date: 05/07/24 <Krish Leon MD - Last Filed: 05/07/24 21:42> ECG completion time: 18:53 <Krish Leon MD - Last Filed: 05/07/24 21:42> EKG Interpretation: normal rate (85), sinus rhythm, normal QRS, normal QT and left axis <Krish Leon MD - Last Filed: 05/07/24 21:42> Discharge Plan Discharge Clinical Impression: Acute viral syndrome, Cerumen impaction, Vertigo <Sherlyn Wisdom APRN - Last Filed: 05/07/24 17:42> Patient Disposition: Home, Self-Care <Sherlyn Wisdom APRN - Last Filed: 05/07/24 17:42> Condition: Stable <Sherlyn Wisdom APRN - Last Filed: 05/07/24 17:42> Instructions: Vertigo (ED), Viral Syndrome (ED) <Sherlyn Wisdom APRN - Last Filed: 05/07/24 17:42> Additional Instructions: As discussed you have a viral illness. Unfortunately there are no specific medications we can give you to make the illness end faster. Antibiotics do not work for viral illnesses. However, you can take Acetaminophen or Ibuprofen to help with fevers and pain. Stay well hydrated and rested. Return to the emergency department if your fevers and chills continue to worse after 5 days, if you develop worsening cough with thick sputum, or are unable to stay hydrated. Contact your primary care provider in the next few days for a re-evaluation and to make sure your symptoms are improving. <Sherlyn Wisdom APRN - Last Filed: 05/07/24 17:42> Prescriptions: No Action cyclobenzaprine 10 mg tablet 10 mg PO TID PRN (Reason: muscle spasm) Qty: 20 0RF naproxen 500 mg tablet 500 mg PO BID PRN (Reason: pain) Qty: 20 0RF hydrochlorothiazide 25 mg tablet 25 mg PO DAILY Qty: 30 0RF albuterol sulfate 90 mcg/actuation HFA aerosol inhaler 2 puff inhalation .Q4-6 PRN (Reason: shortness of breath or wheezing) Qty: 8.5 0RF azithromycin 250 mg tablet 250 mg PO DAILY 4 Days Qty: 4 0RF Rx Instructions: start on day 2 of therapy benzonatate 200 mg capsule 200 mg PO TID PRN (Reason: cough) Qty: 30 0RF cefdinir 300 mg capsule 300 mg PO Q12H 6 Days Qty: 12 0RF Rx Instructions: start 06/05/23 prednisolone sodium phosphate 10 mg tablet,disintegrating 10 mg PO BID Qty: 6 0RF Rx Instructions: star 06/05/23 <Sherlyn Wisdom APRN - Last Filed: 05/07/24 17:42> Follow-up/Referrals: Brittni,ANIL Muhammad [Primary Care Provider] - <Sherlyn Wisdom APRN - Last Filed: 05/07/24 17:42>
[2024-05-07 17:59] VITALS: PULSE 72; RESP 20
[2024-05-07] MEDS: IPRATROPIUM 0.5 MG/ALBUTEROL SULFATE 2.5 MG AMPUL.NEB 3 ML 6 ML INHALATION (17:59)
--- NOTE | 2024-05-07 18:12 | PC.NURSE ---
called at 181, no answer.
[2024-05-07 18:19] VITALS: PULSE 74; RESP 20
[2024-05-07 18:33] VITALS: BP 182/115; PULSE 93; TEMP 36.6; O2SAT 96
[2024-05-07 18:46] VITALS: RESP 20
[2024-05-07] MEDS: ONDANSETRON HCL ODT 4 MG TABLET PO (19:14)
[2024-05-07] MEDS: SODIUM CHLORIDE 0.9% IV 1,000 ML 999 ML IV CONT (19:14)
[2024-05-07 19:32] LABS: Basophils Percent Auto 0.1 % (0.2-1.2); Eosinophils Percent Auto 0.3 % (0-4.4); Hematocrit 44.1 % (42.0-52.0); Hemoglobin 16.2 g/dL (14.0-18.0); Immature Granulocyte Absolute 0.02 K/mm3 (0.00-0.031); Immature Granulocyte Percent A 0.3 % (0-0.5); Lymphocytes Absolute Auto 1.21 K/mm3 (0.9-3.2); Lymphocytes Percent Auto 15.6 % (18.3-44.2); Mean Corpuscular HGB Conc 36.7 g/dl (32-36); Mean Corpuscular Hemoglobin 31.2 pg (26-34); Mean Corpuscular Volume 84.8 fl (80-100); Mean Platelet Volume 9.9 fl (7.4-10.4); Monocytes Absolute Auto 0.3 K/mm3 (0.1-0.6); Monocytes Percent Auto 4.2 % (2.6-8.5); Neutrophils Absolute Auto 6.2 K/mm3 (1.3-6.7); Neutrophils Percent Auto 79.5 % (45.5-73.1); Platelet Count Result 220 k/mm3 (150-375); Red Cell Distribution Width 11.7 % (11.5-14.5); White Blood Count 7.8 K/mm3 (4.5-10.0)
[2024-05-07 19:44] LABS: Partial Thromboplastin Time 25.9 Seconds (22.3-36.8); Prothrombin Time 13.6 Seconds (11.1-14.7)
[2024-05-07 19:52] LABS: Lactic Acid Reflex 1.2 mmol/L (0.7-2.0)
[2024-05-07 19:54] LABS: Alanine Aminotransferase 29 U/L (6-50); Albumin Level 4.8 g/dL (3.5-5.1); Alkaline Phosphatase 66 U/L (38-126); Anion Gap 10 mmol/L (4-12); Aspartate Amino Transferase 32 U/L (17-59); Bilirubin,Total 0.7 mg/dL (0.2-1.3); Blood Urea Nitrogen 16 mg/dL (9-20); Calcium 9.1 mg/dL (8.4-10.2); Carbon Dioxide 21 mmol/L (22-30); Chloride 108 mmol/L (98-107); Estimated CRCL calculation 125 ml/min; Estimated Glomerular Filt Rate > 60; Glucose 100 mg/dL (65-110); Potassium 3.7 mmol/L (3.4-5.0); Sodium 139 mmol/L (137-145)
[2024-05-07 20:05] LABS: Troponin I < 0.012 ng/mL (0.000-0.034)
[2024-05-07 20:09] LABS: Influenza A QL RT-PCR Negative (Negative); Influenza B QL RT-PCR Negative (Negative); RSV RNA, RT-PCR Negative (Negative); SARS-CoV-2 RNA PCR Negative (Negative)
--- NOTE | 2024-05-07 22:02 | PC.NURSE ---
pt upset and pulled his iv out - m ad not getting abx - believes he has pna.
== END 2024-05-07 22:20 | disposition home or self-care (01) ==
PROVIDERS: Registered Nurse; Emergency Provider Emergency Medicine; PCP Physician Assistant
DX: B34.9 Viral infection, unspecified (principal); R42 Dizziness and giddiness; H61.21 Impacted cerumen, right ear; Z20.822 Contact with and (suspected) exposure to COVID-19; I45.9 Conduction disorder, unspecified
CPT/HCPCS: 36415; 71046; 80053; 83605; 83735; 84484; 85025; 85610; 85730; 87040; 87637; 93005; 94640; 96360; 96361; 99284; A9270; J7030

== ENCOUNTER 2024-08-14 23:19 | Emergency (ER) | payer OTHER, SELFPAY ==
[2024-08-14 23:19] VITALS: BP 197/117; PULSE 117; RESP 19; TEMP 36.1; O2SAT 94
--- OUTSIDE RECORDS SUMMARY | 2024-08-14 23:21 | XMS_ITS | CONTINUITY OF CARE DOCUMENT ---
Author Name mor juares Address Unknown Organization [facility] Address [address] [place] [address] [address] [place] [address] Phone [phone] Care Team Providers Care Hand Crocheter Name Role Phone mor juares Unavailable Unavailable INSURANCE PROVIDERS Payer name Policy type / Coverage type Romina red democrat ID [id number] PAY [id number]
--- OUTSIDE RECORDS SUMMARY | 2024-08-14 23:21 | XMS_ITS | Clinical Summary ---
Author Organization [facility] Address [address] [place] [address] Care Team Providers Care Fork Truck Operator Name Role Phone Sonam Morales DO Primary Care Provider [phone] Allergies No known active allergies Medications albuterol sulfate HFA 108 (90 Base) MCG/ACT inhaler 2 puffs. 3 Active citalopram (CELEXA) 40 MG tablet 4 Active Multiple Vitamin (MULTIVITAMIN ADULT OR) Active naloxone (NARCAN) 4 MG/0.1ML nasal sprayIndication s:Opioid dependence on agonist therapy (CMS/FORMERLY [facility] HHS/FORMERLY [facility]) 1 spray by Nasal route as needed for Opioid reversal. may repeat every 2 to 3 minutes in alternating nostrils until medical assistance becomes available 3 each 4 03/01/20 25 Active Active Problems Problem Noted Date Diagnosed Date Mixed hyperlipidemia 03/01/2024 Decreased glomerular filtration rate (GFR) 03/01 Vitamin D insufficiency 03/01/2024 Class 1 obesity with serious comorbidity and body mass index (BMI) of 33.0 to 33.9 in adult, unspecified obesity type 02/15/2024 Opioid dependence on agonist therapy (CMS/HCC HH S/HCC) 02/15/2024 Essential hypertension 08/05/2014 Gastroesophageal reflux disease 08/05/2014 Generalized anxiety disorder 08/05/2014 Low back pain 08/05/2014 Encounters Date Type Department Care Team Description 08/14/2024 11:03 PM DIRECTOR OF NURSES REGISTRY - Present Emergency [facility] [place] [address] Ronnie Dennis MD,PHD Skin Problem from Last 3 Months Family History Medical History Relation Comments No Known Problems Brother No Known Problems Daughter Arthritis Father Diabetes Father Hypertension Father Kidney failure Father No Known Problems Mother Manic depression Paternal Uncle No Known Problems Sister Relation Status Comments Brother Alive Daughter Alive Father Mother Alive Paternal Uncle Sister Alive Social History Tobacco Use Types Packs/Day Years Used Date Smoking Tobacco: Former Cigarettes 1 4 Q uit: 2019 Smokeless Tobacco: Never Tobacco Cessation:Counseling Given: Not Answered Alcohol Use Standard Drinks/Week Comments Never 0 (1 standard drink = 0.6 oz pur e alcohol) PHQ-2 Answer Date Recorded Patient Health Questionnaire-2 Score 1 02/15/2024 Sex and Gender Information Value Date Recorded Sex Assigned at Not on file Legal Sex Male 8:07 PM CDT Gender Identity Not on file Sexual Orientation Not on file Last Filed Vital Signs Vital Sign Reading Time Taken Comments Blood Pressure 143/104 03/01/2024 7:08 AM CDT Pulse 73 08/14/2024 10:55 PM DIRECTOR OF NURSES REGISTRY Temperature 36.4 C (97.5 F) 08/14/2024 10:55 PM DIRECTOR OF NURSES REGISTRY Respiratory Rate 19 08/14/2024 10:55 PM DIRECTOR OF NURSES REGISTRY Oxygen Saturation 95% 08/14/2024 10:55 PM DIRECTOR OF NURSES REGISTRY Inhaled Oxygen Concentration - - Weight 102.1 kg (225 lb) 08/14/2024 10:55 PM DIRECTOR OF NURSES REGISTRY Height 175.3 cm (5' 9 ) 08/14/2024 10:55 PM DIRECTOR OF NURSES REGISTRY Body Mass Index 33.23 08/14/2024 10:55 PM DIRECTOR OF NURSES REGISTRY Plan of Treatment Health Maintenance Due Date Last Done Comments Kidney Health Evaluation 1982 Hemoglobin A1C 1982 Annual Physical 1985 Pneumococcal Vaccine: Pediatrics (0 to 5 Years) and At-Risk Patients (6 to 64 Years) (1 of 2 - PCV) 1988 Diabetes: Retinopathy Eye Exam 2000 DTaP, Tdap and Td Vaccines ( 1 - Tdap) 2001 Hepatitis B Vaccines (1 of 3 - 19+ 3-dose series) 2001 COVID-19 Vaccine (3 - 2023-2 5 season) 2024 10/27/2020, 09/23/2020 PHQ-2 (Physician [place]) 06/12/2024 02/15/2024 Lipid Panel 02/14/2025 02/15/2024 Hepatitis C Completed 02/15/2024 Influenza Adult Completed 03/07/2024 HPV Vaccines Aged Out No longer eligi ble based on patient's age to complete this topic Meningococcal B Vaccine Aged Out No l onger eligible based on patient's age to complete this topic Meningococcal Vaccine Aged Out No rody jung eligible based on patient's age to complete this topic RSV Immunizations Under 20 Months Aged Out No longer eligible b ased on patient's age to complete this topic Procedures * The patient is currently admitted. The information in this section might not be complete until the patient is discharged. Procedure Name Priority Date/Time Associated Diagnosis Comments HEPATITIS C ANTIBODY Routine 02/15/2024 8:29 AM CDT Encounter for hepatitis C virus screening test for high risk patient LIPID PANEL Routine 02/15/2024 8:29 AM CDT Screening for lipid disorders from Last 3 Months or Most Recently Relevant to Health Maintenance Results * (ABNORMAL) LIPID PANEL (02/15/2024 8:29 AM CDT) [facility] CHOLESTEROL 241(H) <200 MG/DL 02/15/2024 3:19 PM CDT [facility] TRIGLYCERIDES 113 <150 MG/DL 02/15/2024 3:19 PM CDT [facility] HDL 67 >40 MG/DL 02/15/2024 3:19 PM CDT [facility] LDL-C 151(H) <100 MG/DL 02/15/2024 3:19 PM CDT [facility] VLDL CALCULATION 23 5 - 28 MG/DL 02/15/2024 3:19 PM CDT [facility] CHOL/HDL RATIO 3.6 0.0 - 4.0 02/15/2024 3:19 PM CDT [facility] LDL/HDL 2.3(H) 0.41 - 2.13 02/15/2024 3:19 PM CDT [facility] NON HDL CHOLESTEROL 174(H) <140 MG/DL 02/15/2024 3:19 PM CDT [facility] 02/15/2024 8:29 AM CDT Sonam Morales DO LABORATORY Final Result Performing Organization Address City/[facility]/ZIP Co de Phone Number [facility] [address] [facility] [place] [address], * HEPATITIS C ANTIBODY ([facility] ONLY) (02/15/2024 8:29 AM CDT) HEPATITIS C AB NON-REACTI VE NON-REACT JARVIS 02/15/2024 7:15 PM CDT [facility] Comment: ANTIBODIES TO HCV NOT DETECTED. DOES NOT EXCLUDE THE POSSIBILITY OF EXPOSURE TO HCV. 02/15/2024 8:29 AM CDT Sonam Morales DO LABORATORY Final Result Performing Organization Address City/[facility] Co de Phone Number [facility] [address] [place] [address], [place] [phone] [id number] from Last 3 Months or Most Recently Relevant to Health Maintenance Insurance R Care Teams Fork Truck Operator Relationship Specialty Start Date End Date Sonam Morales DO [address] [place] [address] PCP - General FAMILY PRACTICE 02/05/24
--- OUTSIDE RECORDS SUMMARY | 2024-08-14 23:21 | XMS_ITS | Encounter Summary ---
Author Organization [facility] Address [address] [place] [address] Care Team Providers Care Hasher Machine Operator Name Role Phone Sonam Morales DO Primary Care Provider [phone] Reason for Visit * Reason Comments Skin Problem Encounter Details Date Type Department Care Team (Late st Contact Info) Description 08/14/2024 11:03 PM VP PRODUCTION - Present Emergency [facility] Emergency Room [place], [place] [id number] Ronnie Dennis MD,PHD [address] [place], [place] [id number] Skin Problem Social History Tobacco Use Types Packs/Day Years Used Date Smoking Tobacco: Former Cigarettes 1 4 Q uit: 2019 Smokeless Tobacco: Never Alcohol Use Standard Drinks/Week Comments Never 0 (1 standard drink = 0.6 oz pur e alcohol) PHQ-2 Answer Date Recorded Patient Health Questionnaire-2 Score 1 02/15/2024 Sex and Gender Information Value Date Recorded Sex Assigned at Not on file Legal Sex Male 8:07 PM CDT Gender Identity Not on file Sexual Orientation Not on file documented as of this encounter Last Filed Vital Signs Vital Sign Reading Time Taken Comments Blood Pressure - - Pulse 73 08/14/2024 10:55 PM VP PRODUCTION Temperature 36.4 C (97.5 F) 08/14/2024 10:55 PM VP PRODUCTION Respiratory Rate 19 08/14/2024 10:55 PM VP PRODUCTION Oxygen Saturation 95% 08/14/2024 10:55 PM VP PRODUCTION Inhaled Oxygen Concentration - - Weight 102.1 kg (225 lb) 08/14/2024 10:55 PM VP PRODUCTION Height 175.3 cm (5' 9 ) 08/14/2024 10:55 PM VP PRODUCTION Body Mass Index 33.23 08/14/2024 10:55 PM VP PRODUCTION documented in this encounter ED Notes * Jenaro Hurd RN - 08/14/2024 11:02 PM CST Pt in triage speaking with MD, pt not please with MD's diagnosis. Pt rips BP cuff off self and walks out of ED. PRODUCTION * Jenaro Hurd RN - 08/14/2024 10:55 PM CST Pt to ed with wounds/rash to arms and hands x 3 weeks. Admits to meth use. Reports worms and bugs coming out of wounds. PRODUCTION documented in this encounter Plan of Treatment Not on file documented as of this encounter Visit Diagnoses Not on filedocumented in this encounter Care Teams Hasher Machine Operator Relationship Specialty Start Date End Date Sonam Morales DO [address] [place] [address] PCP - General FAMILY PRACTICE 02/05/24 documented as of this encounter
--- NOTE | 2024-08-14 23:39 | PC.NURSE ---
Patient reports taking Suboxone, but used meth yesterday via nasal snorting. Reports not using it frequently, but once a week or so. Patient has scabs on all extremities in various healing stages. Appears to be dry skin in pill bottle he brought stating they are the worms he got out of his skin.
--- NOTE | 2024-08-14 23:42 | ED_ITS ---
HPI - Extremity Problem General Chief complaint: Extremity Problem,Nontraumatic Stated complaint: bacterial infection on right hand/arm Time Seen by Provider: 08/14/24 23:31 Source: patient Mode of arrival: ambulatory Limitations: no limitations History of Present Illness HPI Narrative: This is a 43 year old male that presents to the ER for wounds to his bilateral arms. Reports there are worms coming out of his arms. He recently used methamphetamine Related Data Allergies Allergy/AdvReac Type Severity Reaction Status Date / Time No Known Allergies Allergy Verified 08/14/24 23:24 Review of Systems Review of Systems: CONSTITUTIONAL: Denies fever SKIN: Reports rash All systems reviewed & are unremarkable except as noted in HPI and below PMFSH Past Medical History Medical History (Updated 08/15/24 @ 00:00 by Keyon Hager) No active medical problems Social History Social History (Updated 11/21/23 @ 10:00 by Racheal Reese PA-C) Substance use: former Gender identity (if verbalized by the patient): Male Exam Narrative: GENERAL: Well-appearing, well-nourished, and in no acute distress. HEAD: Normocephalic, atraumatic. EYES: EOMI. CHEST: Clear to auscultation. No respiratory distress. No wheezes rales or rhonchi HEART: Regular rate and rhythm. No murmur heard. Normal peripheral pulses. EXTREMITIES: Normal range of motion. No edema. SKIN: Warm, dry. Papular rash with excoriations to the bilateral hands and forearms NEURO: No focal deficits. Alert and oriented x3. PSYCH: Normal mood and affect Course Vital Signs Vital signs: Vital Signs Temperature 97 F L 08/14/24 23:19 Pulse Rate 117 H 08/14/24 23:19 Respiratory Rate 08/14/24 23:19 Blood Pressure 197/117 H 08/14/24 23:19 Pulse Oximetry 94 08/14/24 23:19 Oxygen Delivery Room Air 08/14/24 23:19 Temperature 97 F L 08/14/24 23:19 Pulse Rate 117 H 08/14/24 23:19 Respiratory Rate 19 08/14/24 23:19 Blood Pressure 197/117 H 08/14/24 23:19 Pulse Oximetry 94 08/14/24 23:19 Oxygen Delivery Room Air 08/14/24 23:19 MDM - Extremity (Nontraumatic) MDM Narrative Medical decision making narrative: Patient presents to the ER for rash to the bilateral forearms. Tachycardic and hypertensive upon arrival. He was given his blood pressure medication with i mprovement. Patient appears to be picking at his skin. Will be started on antibiotics for folliculitis. Given warnings to return to the ER Differential Diagnosis Differential diagnosis: Likely cellulitis and other (folliculitis) Critical Care Time Critical Care Time Critical Care Time: No Discharge Plan Discharge Clinical Impression: Folliculitis Patient Disposition: Home, Self-Care Condition: Stable Instructions: Folliculitis (ED), Methamphetamine Use Disorder (ED) Additional Instructions: Return if symptoms worsen or concerns: any increase in redness, swelling, pain or fever over 101 Take antibiotics as directed. Clean wound with mild soapy water. Apply antibiotic ointment daily. Take oral antibiotic as prescribed. Avoid picking your skin Follow up with primary care doctor Patient Language: Filipino Prescriptions: New mupirocin [Centany] 2 % ointment 1 applic topical BID 7 Days Qty: 15 0RF doxycycline hyclate 100 mg tablet 100 mg PO BID 7 Days Qty: 14 0RF No Action cyclobenzaprine 10 mg tablet 10 mg PO TID PRN (Reason: muscle spasm) Qty: 20 0RF naproxen 500 mg tablet 500 mg PO BID PRN (Reason: pain) Qty: 20 0RF hydrochlorothiazide 25 mg tablet 25 mg PO DAILY Qty: 30 0RF albuterol sulfate 90 mcg/actuation HFA aerosol inhaler 2 puff inhalation .Q4-6 PRN (Reason: shortness of breath or wheezing) Qty: 8.5 0RF azithromycin 250 mg tablet 250 mg PO DAILY 4 Days Qty: 4 0RF Rx Instructions: start on day 2 of therapy benzonatate 200 mg capsule 200 mg PO TID PRN (Reason: cough) Qty: 30 0RF cefdinir 300 mg capsule 300 mg PO Q12H 6 Days Qty: 12 0RF Rx Instructions: start 06/05/23 prednisolone sodium phosphate 10 mg tablet,disintegrating 10 mg PO BID Qty: 6 0RF Rx Instructions: star 06/05/23 Follow-up/Referrals: Brittni,ANIL Muhammad [Primary Care Provider] -
--- OUTSIDE RECORDS SUMMARY | 2024-08-15 00:05 | XMS_ITS | Clinical Summary ---
Author Organization [facility] Address [address] [place] [address] Care Team Providers Care Qa Intern Name Role Phone Sonam Morales DO Primary Care Provider [phone] Allergies No known active allergies Medications albuterol sulfate HFA 108 (90 Base) MCG/ACT inhaler 2 puffs. 3 Active citalopram (CELEXA) 40 MG tablet 4 Active Multiple Vitamin (MULTIVITAMIN ADULT OR) Active naloxone (NARCAN) 4 MG/0.1ML nasal sprayIndication s:Opioid dependence on agonist therapy (CMS/[facility]) 1 spray by Nasal route as needed [...] Department Care Team Description 08/14/2024 11:03 PM DOOR INSTALLER - Present Emergency [facility] [place] [address] Ronnie Dennis MD,PHD Skin Problem [...] AM CDT Pulse 73 08/14/2024 10:55 PM DOOR INSTALLER Temperature 36.4 C (97.5 F) 08/14/2024 10:55 PM DOOR INSTALLER Respiratory Rate 19 08/14/2024 10:55 PM DOOR INSTALLER Oxygen Saturation 95% 08/14/2024 10:55 PM DOOR INSTALLER Inhaled Oxygen Concentration - - Weight 102.1 kg (225 lb) 08/14/2024 10:55 PM DOOR INSTALLER Height 175.3 cm (5' 9 ) 08/14/2024 10:55 PM DOOR INSTALLER Body Mass Index 33.23 08/14/2024 10:55 PM DOOR INSTALLER Plan of Treatment Health Maintenance Due Date [...] 5 season) 2024 10/27/2020, 09/23/2020 PHQ-2 (Physician [place]) 06/12/2024 02/15/2024 Lipid Panel 02/14/2025 02/15/2024 Hepatitis [...] (ABNORMAL) LIPID PANEL (02/15/2024 8:29 AM CDT) [facility] CHOLESTEROL 241(H) <200 MG/DL 02/15/2024 3:19 PM CDT [facility] TRIGLYCERIDES 113 <150 MG/DL 02/15/2024 3:19 PM CDT [facility] HDL 67 >40 MG/DL 02/15/2024 3:19 PM CDT [facility] LDL-C 151(H) <100 MG/DL 02/15/2024 3:19 PM CDT [facility] VLDL CALCULATION 23 5 - 28 MG/DL 02/15/2024 3:19 PM CDT [facility] CHOL/HDL RATIO 3.6 0.0 - 4.0 02/15/2024 3:19 PM CDT [facility] LDL/HDL 2.3(H) 0.41 - 2.13 02/15/2024 3:19 PM CDT [facility] NON HDL CHOLESTEROL 174(H) <140 MG/DL 02/15/2024 3:19 PM CD[facility] 02/15/2024 8:29 AM CDT Sonam Morales DO LABORATORY Final Result Performing Organization Address City/[facility]/ZIP Co de Phone Number [facility] [address] [facility] [place] [address], * HEPATITIS C ANTIBODY ([facility] ONLY) (02/15/2024 8:29 AM CDT) HEPATITIS C AB NON-REACTI VE NON-REACT JARVIS 02/15/2024 7:[address] [facility] Comment: ANTIBODIES TO HCV NOT DETECTED. DOES NOT EXCLUDE THE POSSIBILITY OF EXPOSURE TO HCV. 02/15/2024 8:29 AM CDT Sonam Morales DO LABORATORY Final Result Performing Organization Address City/[facility] Co de Phone Number [facility] [address] [place] [address], [place] [phone] from Last 3 Months or Most Recently Relevant to Health Maintenance Insurance R Care Teams Qa Intern Relationship Specialty Start Date End Date Sonam Morales DO [address] [place] [address] PCP - General FAMILY PRACTICE 02/05/24
--- OUTSIDE RECORDS SUMMARY | 2024-08-15 00:05 | XMS_ITS | CONTINUITY OF CARE DOCUMENT ---
Author Name mor juares Address Unknown Organization [facility] Address [id number] [place] [address] [address] [place] [address] Phone [phone] Care Team Providers Care Shoe Packer Name Role Phone mor juares Unavailable Unavailable INSURANCE PROVIDERS Payer name Policy type / Coverage type [employer] party ID [id number] PAY [id number]
--- OUTSIDE RECORDS SUMMARY | 2024-08-15 00:05 | XMS_ITS | Encounter Summary ---
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3 cm (5' 9 ) 08/14/2024 10:55 PM CRACKLING PRESS OPERATOR Body Mass Index 33.23 08/14/2024 10:55 PM CRACKLING PRESS OPERATOR documented in this encounter ED Notes * Jenaro Hurd RN - 08/14/2024 11:02 PM CST Pt in triage speaking with MD, pt not please with MD's diagnosis. Pt rips BP cuff off self and walks out of ED. KLING PRESS OPERATOR * Jenaro Hurd RN - 08/14/2024 10:55 PM CST Pt to ed with wounds/rash to arms and hands x 3 weeks. Admits to meth use. Reports worms and bugs coming out of wounds. KLING PRESS OPERATOR documented in this encounter Plan of Treatment Not on file documented as of this encounter Visit Diagnoses Not on filedocumented in this encounter Care Teams Drawer In Plain Loom Relationship Specialty Start Date End Date Sonam Morales DO [address] [place] [address] PCP - General FAMILY PRACTICE 02/05/24 documented as of this encounter
[2024-08-15] MEDS: hydroCHLOROthiazide 25 MG TABLET PO (00:25)
[2024-08-15] MEDS: DOXYCYCLINE HYCLATE 100 MG TABLET PO (00:26)
[2024-08-15 00:30] VITALS: BP 156/106; PULSE 94; RESP 16; O2SAT 100
== END 2024-08-15 00:30 | disposition home or self-care (01) ==
LOC: ANHED 08-15 00:03
PROVIDERS: Emergency Provider Physician Assistant; PCP Physician Assistant
DX: L73.9 Follicular disorder, unspecified (principal)
CPT/HCPCS: 99283; A9270